=== PATIENT | female | born 1980 ===

== ENCOUNTER → 2022-08-03 | Outpatient (CLI) | payer BC ==
[2022-08-03 09:56] LABS: Urine Bacteria NONE SEEN /hpf (None Seen); Urine Blood 2+ /uL (Negative); Urine Specific Gravity 1.012 (1.001-1.035); Urine WBC 2 /hpf (0 - 5)
[2022-08-03 10:32] LABS: Potassium 3.9 mmol/L (3.5-5.1)
[2022-08-03 10:42] LABS: Albumin 3.9 g/dL (3.4-5.0); BUN/Creatinine Ratio 24.5 (10.0-20.0); Bilirubin, Total 0.5 mg/dL (0.2-1.0); Total Protein 7.3 g/dL (6.4-8.2); Uric Acid 4.8 mg/dL (2.6-6.0)
== END | disposition home or self-care (01) ==
LOC: LAB 09:22
PROVIDERS: ATTEND Internal Medicine
DX: E78.5 Hyperlipidemia, unspecified (principal); R73.9 Hyperglycemia, unspecified; E55.9 Vitamin D deficiency, unspecified; M10.9 Gout, unspecified; M54.59 Other low back pain
CPT/HCPCS: 36415; 80053; 80061; 81001; 82306; 82550; 83036; 84436; 84443; 84550; 87086

== ENCOUNTER → 2022-12-31 | Outpatient (CLI) | payer BC ==
[2022-12-31 10:02] LABS: Alanine Aminotransferase 108 U/L (7-40); Albumin 4.3 g/dL (3.2-4.8); Alkaline Phosphatase 67 U/L (46-116); Anion Gap 6 (5-15); Aspartate Aminotransferase 44 U/L (13-40); BUN/Creatinine Ratio 11.9 (10.0-20.0); Blood Urea Nitrogen 7 mg/dL (9-23); Calcium 8.9 mg/dL (8.5-10.1); Carbon Dioxide 27 mmol/L (20-30); Chloride 103 mmol/L (98-107); Cholesterol 153 mg/dL (< 200); Creatine Kinase IFCC 105 U/L (34-145); Glucose 127 mg/dL (74-106); HDL Cholesterol 56 mg/dL (40-59); LDL Cholesterol 89 mg/dL (< 100); Potassium 3.9 mmol/L (3.5-5.1); Sodium 136 mmol/L (136-145); Triglycerides 144 mg/dL (< 150)
[2022-12-31 10:03] LABS: Bilirubin, Total 1.1 mg/dL (0.2-1.0); Total Protein 7.1 g/dL (5.7-8.2)
[2022-12-31 10:37] LABS: Urine Bacteria NONE SEEN /hpf (None Seen); Urine WBC 3 /hpf (0 - 5)
[2022-12-31 13:13] LABS: Urine Blood 2+ /uL (Negative)
[2022-12-31 13:14] LABS: Urine Clarity CLOUDY (Clear); Urine Color Yellow (Yellow); Urine Protein, UAD Normal (Negative); Urine Urobilinogen Normal (Negative)
[2022-12-31 13:17] LABS: Uric Acid 5.4 mg/dL (3.1-7.8)
== END | disposition home or self-care (01) ==
LOC: LAB 08:55
PROVIDERS: ATTEND Internal Medicine
DX: E78.5 Hyperlipidemia, unspecified (principal); R73.9 Hyperglycemia, unspecified; E55.9 Vitamin D deficiency, unspecified; M10.9 Gout, unspecified; M54.59 Other low back pain
CPT/HCPCS: 36415; 80053; 80061; 81001; 82306; 82550; 83036; 84436; 84443; 84550; 87086